=== PATIENT | male | born 1975 | race Caucasian/White ===

== ENCOUNTER 2019-09-24 08:37 | Inpatient (IN) ==
[2019-09-24] MEDS ORDERED: Naloxone 0.4 MG/ML INJ IVP PRN (10:43)
[2019-09-24 13:52] LABS: Basophils % 0.2 %; Red Cell Distribution Width 12.6 % (11.5-14.5)
[2019-09-24 13:53] LABS: Hematocrit 38.4 % (37.5-50.1); Hemoglobin 13.4 g/dL (12.9-16.9); Immature Granulocytes % 1.4 % (0-4); Immature Platelets 21.2 % (1.1-6.1); Lymphocytes # 1.1 K/mcL (0.6-4.6); Lymphocytes % 5.9 %; Mean Corpuscular HGB Conc 34.9 g/dL (31.6-35.5); Mean Corpuscular Hemoglobin 29.1 pg (28.0-33.3); Mean Corpuscular Volume 83.5 fL (83.0-100.0); Mean Platelet Volume 13.2 fL (9.4-12.4); Monocytes # 1.4 K/mcL (0.0-1.3); Monocytes % 7.2 %; Segmented Neutrophils % 85.3 %; White Blood Count 18.8 K/mcL (4.3-11.1)
[2019-09-24 13:57] LABS: Platelet Count 78 K/mcL (140-400)
[2019-09-24] MEDS ORDERED: *HR* Heparin 5,000 UNIT/ML VIAL SQ SCH (14:00)
[2019-09-24 14:13] LABS: Large Platelets Present (Not Present); Platelet Estimate Decreased (Normal); Reactive Lymphocytes Present (Not Present); Toxic Granulation Present (Not Present)
[2019-09-24] MEDS: Piperacillin/Tazobactam 3.375 GM in 0.9 % Sodium Chloride Mini Bag 100 ML IVPB SCH (14:13)
[2019-09-24 14:15] LABS: BUN/Creatinine Ratio 28 (6-26); Blood Urea Nitrogen 33 mg/dL (6-20); Calcium 7.8 mg/dL (8.6-10.3); Carbon Dioxide 32 mEq/L (23-29); Chloride 85 mEq/L (98-107); Glucose 205 mg/dL (70-105); Osmolality,Calculated 279 (280-300); Potassium 2.8 mEq/L (3.5-5.1); Sodium 128 mEq/L (136-145); eGFR For African Americans > 60 (> 60); eGFR For Non-African Americans > 60 (> 60)
[2019-09-24 18:55] LABS: Alanine Aminotransferase 31 Units/L (7-52); Albumin 2.7 g/dL (3.5-5.7); Albumin/Globulin Ratio 0.8 (1.1-2.2); Alkaline Phosphatase 116 Units/L (34-104); Aspartate Amino Transferase 76 Units/L (13-39); Bilirubin,Direct 0.4 mg/dL (0.0-0.2); Bilirubin,Indirect 0.4 mg/dL (0.0-1.0); Bilirubin,Total 0.8 mg/dL (0.3-1.0); Globulin 3.2 g/dL (2.4-3.5); Total Protein 5.9 g/dL (6.4-8.9)
[2019-09-24 19:38] LABS: INR 1.3; Prothrombin Time 14.9 Seconds (9.4-12.1)
[2019-09-24] MEDS: 0.9 % Sodium Chloride 1,000 ML IVC SCH (19:57)
[2019-09-25 00:44] LABS: Basophils % 0.2 %; Immature Granulocytes % 1.9 % (0-4); Lymphocytes # 1.2 K/mcL (0.6-4.6); Lymphocytes % 5.2 %; Mean Corpuscular HGB Conc 35.1 g/dL (31.6-35.5); Mean Corpuscular Hemoglobin 29.1 pg (28.0-33.3); Mean Corpuscular Volume 82.8 fL (83.0-100.0); Mean Platelet Volume 13.3 fL (9.4-12.4); Neutrophils # 18.5 K/mcL (1.6-8.9); Platelet Count 113 K/mcL (140-400); Red Blood Count 4.47 M/mcL (4.19-5.50); Red Cell Distribution Width 12.5 % (11.5-14.5); Segmented Neutrophils % 83.7 %; White Blood Count 22.1 K/mcL (4.3-11.1)
[2019-09-25] MEDS: Piperacillin/Tazobactam 3.375 GM in 0.9 % Sodium Chloride Mini Bag 100 ML IVPB SCH ×2 (00:44→09:18)
[2019-09-25 01:15] LABS: BUN/Creatinine Ratio 34 (6-26); Blood Urea Nitrogen 31 mg/dL (6-20); Carbon Dioxide 31 mEq/L (23-29); Chloride 91 mEq/L (98-107); Glucose 130 mg/dL (70-105); Osmolality,Calculated 276 (280-300); Potassium 3.4 mEq/L (3.5-5.1); Sodium 129 mEq/L (136-145); eGFR For African Americans > 60 (> 60); eGFR For Non-African Americans > 60 (> 60)
[2019-09-25] MEDS: *HR* Buprenorphine HCl 8 MG TAB.SUBL SL SCH ×2 (03:14→09:17)
[2019-09-25] MEDS ORDERED: Aminoglycoside Consult 1 EACH MC ONE (07:27)
[2019-09-25] MEDS: 0.9 % Sodium Chloride 1,000 ML IVC SCH (13:30)
[2019-09-25 14:46] LABS: Rheumatoid Factor 13 IU/mL (Less than 14)
[2019-09-25 15:09] LABS: Hepatitis B Surface Antibody < 3.10 mIU/mL
[2019-09-25 15:20] LABS: Hepatitis B Surface Antigen Nonreactive (Nonreactive)
[2019-09-25 15:48] LABS: Hepatitis C Virus Antibody Nonreactive (Nonreactive)
[2019-09-25 15:49] LABS: HIV-1&2 Antibody & p24 Ag Nonreactive (Nonreactive)
[2019-09-25] MEDS: ceFAZolin 2,000 MG in 0.9 % Sodium Chloride 100 ML IVPB SCH ×2 (18:21→23:44)
[2019-09-25] MEDS: [UNRECOGNIZED DRUG - OTHER] SL SCH (21:13)
[2019-09-26 03:29] LABS: Acinetobacter baumannii by PCR Not Detected (Not Detect); Candida albicans by PCR Not Detected (Not Detect); Candida glabrata by PCR Not Detected (Not Detect); Candida krusei by PCR Not Detected (Not Detect); Candida parapsilosis by PCR Not Detected (Not Detect); Candida tropicalis by PCR Not Detected (Not Detect); Enterobacter cloacae Cmplx PCR Not Detected (Not Detect); Enterobacteriaceae by PCR Not Detected (Not Detect); Enterococcus by PCR Not Detected (Not Detect); Escherichia coli by PCR Not Detected (Not Detect); Klebsiella oxytoca by PCR Not Detected (Not Detect); Klebsiella pneumoniae by PCR Not Detected (Not Detect); Proteus by PCR Not Detected (Not Detect); Pseudomonas aeruginosa by PCR Not Detected (Not Detect); Serratia marcescens by PCR Not Detected (Not Detect); Staphylococcus aureus by PCR DETECTED (Not Detect); Staphylococcus by PCR Not Detected (Not Detect); Streptococcus agalactiae(B)PCR Not Detected (Not Detect); Streptococcus by PCR Not Detected (Not Detect); Streptococcus pneumoniae PCR Not Detected (Not Detect); Streptococcus pyogenes (A) PCR Not Detected (Not Detect); mecA Methicillin-Resist Gene Not Detected (Not Detect)
[2019-09-26 05:47] LABS: Hemoglobin 13.6 g/dL (12.9-16.9); Immature Platelets 16.1 % (1.1-6.1); Mean Corpuscular HGB Conc 34.9 g/dL (31.6-35.5); Mean Corpuscular Hemoglobin 29.2 pg (28.0-33.3); Mean Corpuscular Volume 83.7 fL (83.0-100.0); Mean Platelet Volume 12.5 fL (9.4-12.4); Red Blood Count 4.66 M/mcL (4.19-5.50); Red Cell Distribution Width 13.1 % (11.5-14.5); White Blood Count 15.4 K/mcL (4.3-11.1)
[2019-09-26 05:53] LABS: Alanine Aminotransferase 33 Units/L (7-52); Albumin 2.6 g/dL (3.5-5.7); Albumin/Globulin Ratio 0.8 (1.1-2.2); Alkaline Phosphatase 85 Units/L (34-104); Aspartate Amino Transferase 48 Units/L (13-39); BUN/Creatinine Ratio 25 (6-26); Bilirubin,Total 0.7 mg/dL (0.3-1.0); Blood Urea Nitrogen 22 mg/dL (6-20); Carbon Dioxide 32 mEq/L (23-29); Chloride 92 mEq/L (98-107); Globulin 3.2 g/dL (2.4-3.5); Glucose 95 mg/dL (70-105); Osmolality,Calculated 285 (280-300); Potassium 3.6 mEq/L (3.5-5.1); Sodium 136 mEq/L (136-145); Total Protein 5.8 g/dL (6.4-8.9); eGFR For African Americans > 60 (> 60); eGFR For Non-African Americans > 60 (> 60)
[2019-09-26 05:54] LABS: Albumin 2.6 g/dL (3.5-5.7); Albumin/Globulin Ratio 0.8 (1.1-2.2); Bilirubin,Direct 0.2 mg/dL (0.0-0.2); Bilirubin,Indirect 0.5 mg/dL (0.0-1.0); Bilirubin,Total 0.7 mg/dL (0.3-1.0); Globulin 3.2 g/dL (2.4-3.5); Magnesium 1.9 mg/dL (1.6-2.6); Total Protein 5.8 g/dL (6.4-8.9)
[2019-09-26] MEDS: [UNRECOGNIZED DRUG - OTHER] SL SCH ×2 (09:42→21:16)
[2019-09-26] MEDS: ceFAZolin 2,000 MG in 0.9 % Sodium Chloride 100 ML IVPB SCH ×3 (09:42→23:39)
[2019-09-27] MEDS ORDERED: Acetaminophen 325 MG TABLET PO ONE (04:13)
[2019-09-27 06:04] LABS: BUN/Creatinine Ratio 18 (6-26); Blood Urea Nitrogen 16 mg/dL (6-20); Calcium 8.1 mg/dL (8.6-10.3); Carbon Dioxide 31 mEq/L (23-29); Chloride 92 mEq/L (98-107); Glucose 87 mg/dL (70-105); Osmolality,Calculated 273 (280-300); Potassium 3.8 mEq/L (3.5-5.1); Sodium 131 mEq/L (136-145); eGFR For African Americans > 60 (> 60); eGFR For Non-African Americans > 60 (> 60)
[2019-09-27] MEDS ORDERED: Lidocaine Viscous Oral Soln 15 ML SOLUTION MM PRN (09:50)
[2019-09-27] MEDS ORDERED: *HR* FentaNYL (PF) 100 MCG/2 ML VIAL IVP PRN (09:50)
[2019-09-27] MEDS ORDERED: 0.9 % Sodium Chloride 500 ML IVC ONE (09:50)
[2019-09-27] MEDS: *HR* Midazolam HCl 5 MG/5 ML VIAL IVP PRN ×2 (10:20→10:25)
[2019-09-27] MEDS: ceFAZolin 2,000 MG in 0.9 % Sodium Chloride 100 ML IVPB SCH ×2 (11:43→18:16)
[2019-09-27] MEDS: [UNRECOGNIZED DRUG - OTHER] SL SCH ×2 (13:39→22:01)
[2019-09-27] MEDS: Acetaminophen 325 MG TABLET PO PRN (22:03)
[2019-09-28] MEDS: ceFAZolin 2,000 MG in 0.9 % Sodium Chloride 100 ML IVPB SCH ×4 (00:31→23:47)
[2019-09-28 05:52] LABS: Alanine Aminotransferase 28 Units/L (7-52); Albumin 2.5 g/dL (3.5-5.7); Albumin/Globulin Ratio 0.6 (1.1-2.2); Alkaline Phosphatase 84 Units/L (34-104); Aspartate Amino Transferase 44 Units/L (13-39); BUN/Creatinine Ratio 15 (6-26); Bilirubin,Total 0.7 mg/dL (0.3-1.0); Blood Urea Nitrogen 13 mg/dL (6-20); Calcium 8.2 mg/dL (8.6-10.3); Carbon Dioxide 32 mEq/L (23-29); Chloride 96 mEq/L (98-107); Globulin 4.1 g/dL (2.4-3.5); Glucose 90 mg/dL (70-105); Osmolality,Calculated 274 (280-300); Potassium 3.5 mEq/L (3.5-5.1); Sodium 132 mEq/L (136-145); Total Protein 6.6 g/dL (6.4-8.9); eGFR For African Americans > 60 (> 60); eGFR For Non-African Americans > 60 (> 60)
[2019-09-28] MEDS: [UNRECOGNIZED DRUG - OTHER] SL SCH ×2 (09:07→21:33)
[2019-09-28 10:51] LABS: Acinetobacter baumannii by PCR Not Detected (Not Detect); Candida albicans by PCR Not Detected (Not Detect); Candida glabrata by PCR Not Detected (Not Detect); Candida krusei by PCR Not Detected (Not Detect); Candida parapsilosis by PCR Not Detected (Not Detect); Candida tropicalis by PCR Not Detected (Not Detect); Enterobacter cloacae Cmplx PCR Not Detected (Not Detect); Enterobacteriaceae by PCR Not Detected (Not Detect); Enterococcus by PCR Not Detected (Not Detect); Escherichia coli by PCR Not Detected (Not Detect); Klebsiella oxytoca by PCR Not Detected (Not Detect); Klebsiella pneumoniae by PCR Not Detected (Not Detect); Proteus by PCR Not Detected (Not Detect); Pseudomonas aeruginosa by PCR Not Detected (Not Detect); Serratia marcescens by PCR Not Detected (Not Detect); Staphylococcus aureus by PCR DETECTED (Not Detect); Streptococcus agalactiae(B)PCR Not Detected (Not Detect); Streptococcus by PCR Not Detected (Not Detect); Streptococcus pneumoniae PCR Not Detected (Not Detect); Streptococcus pyogenes (A) PCR Not Detected (Not Detect); blaKPC Carbapenem-Resist Gene Not Detected (Not Detect); mecA Methicillin-Resist Gene Not Detected (Not Detect); vanA/B Vancomycin-Resist Genes Not Detected (Not Detect)
[2019-09-28 11:07] LABS: Basophils # 0.1 K/mcL (0.0-0.2); Basophils % 0.4 %; Eosinophils # 0.1 K/mcL (0.0-0.6); Eosinophils % 0.6 %; Hematocrit 36.4 % (37.5-50.1); Hemoglobin 11.9 g/dL (12.9-16.9); Immature Granulocytes % 5.2 % (0-4); Lymphocytes # 2.4 K/mcL (0.6-4.6); Lymphocytes % 14.4 %; Mean Corpuscular HGB Conc 32.7 g/dL (31.6-35.5); Mean Corpuscular Hemoglobin 29.1 pg (28.0-33.3); Mean Platelet Volume 10.5 fL (9.4-12.4); Monocytes % 6.1 %; Platelet Count 297 K/mcL (140-400); Red Blood Count 4.09 M/mcL (4.19-5.50); Red Cell Distribution Width 13.3 % (11.5-14.5); Segmented Neutrophils % 73.3 %; White Blood Count 16.4 K/mcL (4.3-11.1)
[2019-09-28 11:16] LABS: Platelet Estimate Normal (Normal)
[2019-09-28] MEDS: Nicotine 14 MG PATCH.TD24 TD SCH (17:08)
[2019-09-28] MEDS: *HR* Heparin 5,000 UNIT/ML VIAL SQ SCH (21:34)
[2019-09-29] MEDS: *HR* Heparin 5,000 UNIT/ML VIAL SQ SCH ×3 (05:08→21:30)
[2019-09-29 07:02] LABS: Hematocrit 33.6 % (37.5-50.1); Hemoglobin 11.4 g/dL (12.9-16.9); Mean Corpuscular HGB Conc 33.9 g/dL (31.6-35.5); Mean Corpuscular Hemoglobin 29.3 pg (28.0-33.3); Mean Corpuscular Volume 86.4 fL (83.0-100.0); Mean Platelet Volume 10.1 fL (9.4-12.4); Platelet Count 390 K/mcL (140-400); Red Blood Count 3.89 M/mcL (4.19-5.50); Red Cell Distribution Width 13.3 % (11.5-14.5); White Blood Count 14.3 K/mcL (4.3-11.1)
[2019-09-29 07:32] LABS: BUN/Creatinine Ratio 13 (6-26); Blood Urea Nitrogen 11 mg/dL (6-20); Calcium 7.9 mg/dL (8.6-10.3); Carbon Dioxide 29 mEq/L (23-29); Chloride 94 mEq/L (98-107); Glucose 105 mg/dL (70-105); Osmolality,Calculated 274 (280-300); Potassium 4.2 mEq/L (3.5-5.1); Sodium 132 mEq/L (136-145); eGFR For African Americans > 60 (> 60); eGFR For Non-African Americans > 60 (> 60)
[2019-09-29] MEDS: [UNRECOGNIZED DRUG - OTHER] SL SCH ×2 (09:15→21:30)
[2019-09-29] MEDS: ceFAZolin 2,000 MG in 0.9 % Sodium Chloride 100 ML IVPB SCH ×3 (09:16→23:34)
[2019-09-29] MEDS: Nicotine 14 MG PATCH.TD24 TD SCH (09:17)
[2019-09-30] MEDS: *HR* Heparin 5,000 UNIT/ML VIAL SQ SCH ×3 (05:35→21:13)
[2019-09-30 06:01] LABS: Basophils % 0.3 %; Eosinophils # 0.1 K/mcL (0.0-0.6); Eosinophils % 0.4 %; Hematocrit 36.2 % (37.5-50.1); Hemoglobin 11.6 g/dL (12.9-16.9); Immature Granulocytes % 3.2 % (0-4); Lymphocytes # 2.4 K/mcL (0.6-4.6); Mean Corpuscular Hemoglobin 28.9 pg (28.0-33.3); Mean Platelet Volume 9.9 fL (9.4-12.4); Monocytes # 0.8 K/mcL (0.0-1.3); Monocytes % 5.9 %; Neutrophils # 9.6 K/mcL (1.6-8.9); Platelet Count 450 K/mcL (140-400); Red Blood Count 4.02 M/mcL (4.19-5.50); Red Cell Distribution Width 13.4 % (11.5-14.5); Segmented Neutrophils % 72.2 %; White Blood Count 13.3 K/mcL (4.3-11.1)
[2019-09-30 06:25] LABS: BUN/Creatinine Ratio 15 (6-26); Blood Urea Nitrogen 12 mg/dL (6-20); Calcium 8.3 mg/dL (8.6-10.3); Carbon Dioxide 29 mEq/L (23-29); Chloride 95 mEq/L (98-107); Glucose 106 mg/dL (70-105); Osmolality,Calculated 274 (280-300); Potassium 4.1 mEq/L (3.5-5.1); Sodium 132 mEq/L (136-145); eGFR For African Americans > 60 (> 60); eGFR For Non-African Americans > 60 (> 60)
[2019-09-30] MEDS: Nicotine 14 MG PATCH.TD24 TD SCH (08:58)
[2019-09-30] MEDS: [UNRECOGNIZED DRUG - OTHER] SL SCH ×2 (08:59→21:13)
[2019-09-30] MEDS: ceFAZolin 2,000 MG in 0.9 % Sodium Chloride 100 ML IVPB SCH ×3 (08:59→23:30)
[2019-09-30] MEDS ORDERED: *HR* Metoprolol 5 MG/5 ML VIAL IVP ONE (13:26)
[2019-09-30] MEDS: Acetaminophen 325 MG TABLET PO PRN (15:45)
[2019-10-01 01:52] LABS: Basophils # 0.1 K/mcL (0.0-0.2); Basophils % 0.4 %; Eosinophils # 0.1 K/mcL (0.0-0.6); Eosinophils % 0.4 %; Hematocrit 32.9 % (37.5-50.1); Hemoglobin 10.3 g/dL (12.9-16.9); Immature Granulocytes % 2.6 % (0-4); Lymphocytes # 2.3 K/mcL (0.6-4.6); Lymphocytes % 19.7 %; Mean Corpuscular HGB Conc 31.3 g/dL (31.6-35.5); Mean Corpuscular Hemoglobin 28.7 pg (28.0-33.3); Mean Corpuscular Volume 91.6 fL (83.0-100.0); Monocytes # 0.8 K/mcL (0.0-1.3); Platelet Count 415 K/mcL (140-400); Red Blood Count 3.59 M/mcL (4.19-5.50); Red Cell Distribution Width 13.2 % (11.5-14.5); Segmented Neutrophils % 69.9 %; White Blood Count 11.5 K/mcL (4.3-11.1)
[2019-10-01] MEDS: *HR* Heparin 5,000 UNIT/ML VIAL SQ SCH ×3 (05:18→22:00)
[2019-10-01] MEDS: [UNRECOGNIZED DRUG - OTHER] SL SCH ×2 (09:52→20:03)
[2019-10-01] MEDS: ceFAZolin 2,000 MG in 0.9 % Sodium Chloride 100 ML IVPB SCH ×2 (09:57→16:18)
[2019-10-01] MEDS: Nicotine 14 MG PATCH.TD24 TD SCH (09:58)
[2019-10-01] MEDS: Nicotine 2 MG GUM BC PRN ×3 (16:17→21:57)
[2019-10-02] MEDS: ceFAZolin 2,000 MG in 0.9 % Sodium Chloride 100 ML IVPB SCH ×3 (00:03→17:20)
[2019-10-02] MEDS: Nicotine 2 MG GUM BC PRN ×3 (00:03→21:11)
[2019-10-02 04:51] LABS: Basophils % 0.3 %; Eosinophils % 0.3 %; Hematocrit 32.8 % (37.5-50.1); Hemoglobin 10.5 g/dL (12.9-16.9); Immature Granulocytes % 1.8 % (0-4); Lymphocytes % 17.4 %; Mean Corpuscular Hemoglobin 28.8 pg (28.0-33.3); Mean Corpuscular Volume 90.1 fL (83.0-100.0); Mean Platelet Volume 9.2 fL (9.4-12.4); Monocytes # 0.7 K/mcL (0.0-1.3); Monocytes % 6.4 %; Neutrophils # 8.5 K/mcL (1.6-8.9); Platelet Count 445 K/mcL (140-400); Red Blood Count 3.64 M/mcL (4.19-5.50); Red Cell Distribution Width 13.3 % (11.5-14.5); Segmented Neutrophils % 73.8 %; White Blood Count 11.5 K/mcL (4.3-11.1)
[2019-10-02 05:11] LABS: BUN/Creatinine Ratio 17 (6-26); Blood Urea Nitrogen 12 mg/dL (6-20); Calcium 8.1 mg/dL (8.6-10.3); Carbon Dioxide 27 mEq/L (23-29); Chloride 99 mEq/L (98-107); Glucose 90 mg/dL (70-105); Osmolality,Calculated 273 (280-300); Potassium 4.5 mEq/L (3.5-5.1); Sodium 132 mEq/L (136-145); eGFR For African Americans > 60 (> 60); eGFR For Non-African Americans > 60 (> 60)
[2019-10-02] MEDS: *HR* Heparin 5,000 UNIT/ML VIAL SQ SCH ×3 (05:16→21:11)
[2019-10-02] MEDS: Nicotine 14 MG PATCH.TD24 TD SCH (09:49)
[2019-10-02] MEDS: [UNRECOGNIZED DRUG - OTHER] SL SCH ×2 (09:49→21:12)
[2019-10-02] MEDS: Ipratropium Neb 0.5 MG NEBULIZER IH SCH ×3 (10:45→21:42)
[2019-10-02] MEDS: Levalbuterol Neb 1.25 MG/3 ML IH SCH ×3 (10:45→21:42)
[2019-10-02] MEDS: predniSONE 20 MG TABLET PO SCH (13:13)
[2019-10-02] MEDS ORDERED: Furosemide 20 MG/2 ML VIAL IVP ONE (17:23)
[2019-10-03] MEDS: ceFAZolin 2,000 MG in 0.9 % Sodium Chloride 100 ML IVPB SCH ×4 (00:04→23:22)
[2019-10-03] MEDS: Nicotine 2 MG GUM BC PRN ×5 (03:09→16:56)
[2019-10-03] MEDS: Ipratropium Neb 0.5 MG NEBULIZER IH SCH ×4 (04:15→22:32)
[2019-10-03] MEDS: Levalbuterol Neb 1.25 MG/3 ML IH SCH ×4 (04:15→22:32)
[2019-10-03] MEDS: *HR* Heparin 5,000 UNIT/ML VIAL SQ SCH ×3 (05:04→21:10)
[2019-10-03 06:17] LABS: BUN/Creatinine Ratio 20 (6-26); Blood Urea Nitrogen 14 mg/dL (6-20); Calcium 8.2 mg/dL (8.6-10.3); Carbon Dioxide 28 mEq/L (23-29); Chloride 100 mEq/L (98-107); Glucose 121 mg/dL (70-105); Osmolality,Calculated 284 (280-300); Potassium 4.1 mEq/L (3.5-5.1); Sodium 136 mEq/L (136-145); eGFR For African Americans > 60 (> 60); eGFR For Non-African Americans > 60 (> 60)
[2019-10-03] MEDS ORDERED: Furosemide 20 MG/2 ML VIAL IVP ONE (08:02)
[2019-10-03] MEDS: predniSONE 20 MG TABLET PO SCH (08:40)
[2019-10-03] MEDS: Nicotine 14 MG PATCH.TD24 TD SCH (08:40)
[2019-10-03] MEDS: [UNRECOGNIZED DRUG - OTHER] SL SCH ×2 (08:41→21:09)
[2019-10-04] MEDS: Ipratropium Neb 0.5 MG NEBULIZER IH SCH ×2 (04:09→09:32)
[2019-10-04] MEDS: Levalbuterol Neb 1.25 MG/3 ML IH SCH ×2 (04:09→09:32)
[2019-10-04] MEDS: *HR* Heparin 5,000 UNIT/ML VIAL SQ SCH ×3 (05:44→21:17)
[2019-10-04] MEDS: ceFAZolin 2,000 MG in 0.9 % Sodium Chloride 100 ML IVPB SCH ×3 (10:32→23:06)
[2019-10-04] MEDS: Nicotine 14 MG PATCH.TD24 TD SCH (10:32)
[2019-10-04] MEDS: [UNRECOGNIZED DRUG - OTHER] SL SCH ×2 (10:32→21:17)
[2019-10-04] MEDS: Nicotine 2 MG GUM BC PRN (21:17)
[2019-10-05 04:11] LABS: Basophils % 0.4 %; Eosinophils % 0.2 %; Hematocrit 30.9 % (37.5-50.1); Hemoglobin 9.8 g/dL (12.9-16.9); Lymphocytes # 2.1 K/mcL (0.6-4.6); Lymphocytes % 22.3 %; Mean Corpuscular HGB Conc 31.7 g/dL (31.6-35.5); Mean Corpuscular Hemoglobin 28.4 pg (28.0-33.3); Mean Corpuscular Volume 89.6 fL (83.0-100.0); Monocytes # 0.6 K/mcL (0.0-1.3); Monocytes % 6.5 %; Neutrophils # 6.4 K/mcL (1.6-8.9); Platelet Count 461 K/mcL (140-400); Red Blood Count 3.45 M/mcL (4.19-5.50); Red Cell Distribution Width 13.5 % (11.5-14.5); Segmented Neutrophils % 69.6 %; White Blood Count 9.3 K/mcL (4.3-11.1)
[2019-10-05] MEDS: *HR* Heparin 5,000 UNIT/ML VIAL SQ SCH ×3 (05:02→22:36)
[2019-10-05] MEDS: Nicotine 2 MG GUM BC PRN ×2 (05:02→22:36)
[2019-10-05] MEDS: Nicotine 14 MG PATCH.TD24 TD SCH (08:59)
[2019-10-05] MEDS: ceFAZolin 2,000 MG in 0.9 % Sodium Chloride 100 ML IVPB SCH ×2 (08:59→18:36)
[2019-10-05] MEDS: [UNRECOGNIZED DRUG - OTHER] SL SCH ×2 (08:59→20:43)
[2019-10-05] MEDS: Acetaminophen 325 MG TABLET PO PRN (22:35)
[2019-10-06] MEDS: ceFAZolin 2,000 MG in 0.9 % Sodium Chloride 100 ML IVPB SCH ×3 (00:03→15:46)
[2019-10-06] MEDS: *HR* Heparin 5,000 UNIT/ML VIAL SQ SCH ×3 (05:32→21:17)
[2019-10-06] MEDS: Nicotine 14 MG PATCH.TD24 TD SCH (08:57)
[2019-10-06] MEDS: [UNRECOGNIZED DRUG - OTHER] SL SCH ×2 (09:11→21:16)
[2019-10-06] MEDS: Nicotine 2 MG GUM BC PRN ×2 (14:32→21:16)
[2019-10-07] MEDS: ceFAZolin 2,000 MG in 0.9 % Sodium Chloride 100 ML IVPB SCH ×4 (00:04→23:13)
[2019-10-07] MEDS: Nicotine 2 MG GUM BC PRN ×6 (00:37→23:14)
[2019-10-07] MEDS: *HR* Heparin 5,000 UNIT/ML VIAL SQ SCH ×3 (06:20→21:10)
[2019-10-07] MEDS: Nicotine 14 MG PATCH.TD24 TD SCH (09:49)
[2019-10-07] MEDS: [UNRECOGNIZED DRUG - OTHER] SL SCH ×2 (10:04→21:10)
[2019-10-07] MEDS: Melatonin 3 MG TABLET PO SCH (21:10)
[2019-10-08] MEDS: Nicotine 2 MG GUM BC PRN ×6 (04:02→21:23)
[2019-10-08] MEDS: *HR* Heparin 5,000 UNIT/ML VIAL SQ SCH ×3 (05:50→21:17)
[2019-10-08] MEDS: ceFAZolin 2,000 MG in 0.9 % Sodium Chloride 100 ML IVPB SCH ×2 (08:10→16:48)
[2019-10-08] MEDS: [UNRECOGNIZED DRUG - OTHER] SL SCH ×2 (08:10→21:18)
[2019-10-08] MEDS: Nicotine 14 MG PATCH.TD24 TD SCH (08:11)
[2019-10-08] MEDS: Melatonin 3 MG TABLET PO SCH (21:17)
[2019-10-09] MEDS: ceFAZolin 2,000 MG in 0.9 % Sodium Chloride 100 ML IVPB SCH ×3 (00:50→16:50)
[2019-10-09] MEDS: Nicotine 2 MG GUM BC PRN ×5 (00:50→21:33)
[2019-10-09 04:12] LABS: Basophils # 0.1 K/mcL (0.0-0.2); Basophils % 0.6 %; Eosinophils # 0.2 K/mcL (0.0-0.6); Eosinophils % 1.8 %; Hematocrit 30.6 % (37.5-50.1); Hemoglobin 9.9 g/dL (12.9-16.9); Immature Granulocytes % 2.7 % (0-4); Lymphocytes # 3.3 K/mcL (0.6-4.6); Lymphocytes % 34.9 %; Mean Corpuscular HGB Conc 32.4 g/dL (31.6-35.5); Mean Corpuscular Hemoglobin 28.9 pg (28.0-33.3); Mean Corpuscular Volume 89.2 fL (83.0-100.0); Mean Platelet Volume 8.8 fL (9.4-12.4); Monocytes # 0.6 K/mcL (0.0-1.3); Monocytes % 6.1 %; Neutrophils # 5.1 K/mcL (1.6-8.9); Platelet Count 371 K/mcL (140-400); Red Blood Count 3.43 M/mcL (4.19-5.50); Segmented Neutrophils % 53.9 %; White Blood Count 9.4 K/mcL (4.3-11.1)
[2019-10-09] MEDS ORDERED: *HR* LORazepam 2 MG/ML VIAL IVP ONE (04:25)
[2019-10-09 04:29] LABS: BUN/Creatinine Ratio 22 (6-26); Blood Urea Nitrogen 18 mg/dL (6-20); Calcium 8.6 mg/dL (8.6-10.3); Carbon Dioxide 28 mEq/L (23-29); Chloride 100 mEq/L (98-107); Glucose 94 mg/dL (70-105); Osmolality,Calculated 284 (280-300); Potassium 4.5 mEq/L (3.5-5.1); Sodium 136 mEq/L (136-145); eGFR For African Americans > 60 (> 60); eGFR For Non-African Americans > 60 (> 60)
[2019-10-09] MEDS: *HR* Heparin 5,000 UNIT/ML VIAL SQ SCH ×3 (04:42→21:33)
[2019-10-09] MEDS: [UNRECOGNIZED DRUG - OTHER] SL SCH (08:46)
[2019-10-09] MEDS: Nicotine 14 MG PATCH.TD24 TD SCH (08:48)
[2019-10-09] MEDS: *HR* Buprenorphine HCl 8 MG TAB.SUBL SL SCH ×2 (10:45→21:33)
[2019-10-09] MEDS: Melatonin 3 MG TABLET PO SCH (21:33)
[2019-10-10] MEDS: ceFAZolin 2,000 MG in 0.9 % Sodium Chloride 100 ML IVPB SCH ×4 (00:01→22:28)
[2019-10-10] MEDS: Nicotine 2 MG GUM BC PRN ×6 (00:02→22:27)
[2019-10-10] MEDS: *HR* Heparin 5,000 UNIT/ML VIAL SQ SCH ×3 (05:19→22:27)
[2019-10-10] MEDS: *HR* Buprenorphine HCl 8 MG TAB.SUBL SL SCH ×2 (08:09→22:27)
[2019-10-10] MEDS: Nicotine 14 MG PATCH.TD24 TD SCH (08:10)
[2019-10-10] MEDS: Melatonin 3 MG TABLET PO SCH (22:27)
[2019-10-11] MEDS: Nicotine 2 MG GUM BC PRN ×7 (02:24→23:58)
[2019-10-11] MEDS: *HR* Heparin 5,000 UNIT/ML VIAL SQ SCH ×3 (05:55→21:10)
[2019-10-11] MEDS: *HR* Buprenorphine HCl 8 MG TAB.SUBL SL SCH ×2 (10:03→21:10)
[2019-10-11] MEDS: Nicotine 14 MG PATCH.TD24 TD SCH (10:04)
[2019-10-11] MEDS: ceFAZolin 2,000 MG in 0.9 % Sodium Chloride 100 ML IVPB SCH ×3 (10:04→23:59)
[2019-10-11] MEDS: Melatonin 3 MG TABLET PO SCH (21:10)
[2019-10-12] MEDS: Nicotine 2 MG GUM BC PRN ×5 (05:23→21:10)
[2019-10-12] MEDS: *HR* Heparin 5,000 UNIT/ML VIAL SQ SCH ×3 (05:23→21:10)
[2019-10-12] MEDS: ceFAZolin 2,000 MG in 0.9 % Sodium Chloride 100 ML IVPB SCH ×2 (08:23→16:27)
[2019-10-12] MEDS: Nicotine 14 MG PATCH.TD24 TD SCH (08:24)
[2019-10-12] MEDS: *HR* Buprenorphine HCl 8 MG TAB.SUBL SL SCH ×2 (08:25→21:09)
[2019-10-12] MEDS: Acetaminophen 325 MG TABLET PO PRN (16:29)
[2019-10-12] MEDS: Melatonin 3 MG TABLET PO SCH (21:10)
[2019-10-13] MEDS: Nicotine 2 MG GUM BC PRN ×5 (00:28→19:27)
[2019-10-13] MEDS: ceFAZolin 2,000 MG in 0.9 % Sodium Chloride 100 ML IVPB SCH ×4 (00:29→23:34)
[2019-10-13] MEDS: *HR* Heparin 5,000 UNIT/ML VIAL SQ SCH ×3 (05:47→23:38)
[2019-10-13] MEDS: *HR* Buprenorphine HCl 8 MG TAB.SUBL SL SCH ×2 (09:28→23:34)
[2019-10-13] MEDS: Nicotine 14 MG PATCH.TD24 TD SCH (09:29)
[2019-10-13] MEDS: Melatonin 3 MG TABLET PO SCH (23:34)
[2019-10-14] MEDS: *HR* Heparin 5,000 UNIT/ML VIAL SQ SCH ×2 (05:41→13:57)
[2019-10-14] MEDS: Nicotine 2 MG GUM BC PRN ×4 (05:41→13:57)
[2019-10-14] MEDS: ceFAZolin 2,000 MG in 0.9 % Sodium Chloride 100 ML IVPB SCH ×2 (08:26→15:35)
[2019-10-14] MEDS: Nicotine 14 MG PATCH.TD24 TD SCH (08:26)
[2019-10-14] MEDS: *HR* Buprenorphine HCl 8 MG TAB.SUBL SL SCH (08:27)
[2019-10-14 14:22] VITALS: BP 128/80
== END 2019-10-14 19:10 | DRG 871 ==
LOC: 3ANU → SUATTDRO 09:54 → 3ANU 10:06 → SUATTDRO 09-25 13:49
PROVIDERS: ADMIT Internal Medicine; ATTEND Student in an Organized Health Care Education/Training Program